=== PATIENT | female | born 1955 ===

== ENCOUNTER 2017-05-11 11:15 | Inpatient (IN) | payer SELFPAY ==
[2017-05-11] MEDS ORDERED: Sodium Chloride 0.9% 1,000 ML IV STA (12:54)
[2017-05-11 13:12] LABS: BASO # 0.1 K/uL (0.0-0.2); BASO % 0.8 % (0.0-2.0); EOS # 0.3 K/uL (0.0-0.7); EOS % 2.9 % (0.0-4.0); HEMATOCRIT 40.4 % (34.0-47.0); LYMPH % 32.6 % (20.0-40.0); MEAN CELL VOLUME 86.8 fL (81.0-99.0); MEAN CORPUSCULAR HEMOGLOBIN 28.7 pg (27.0-31.0); MEAN CORPUSCULAR HGB CONC 33.1 g/dL (33.0-37.0); MEAN PLATELET VOLUME 9.2 fL (7.2-11.7); MONO # 0.8 K/uL (0.0-0.8); MONO % 8.6 % (0.0-10.0); NRBC % 0.1 % (0.0-2.0); RED CELL DISTRIBUTION WIDTH 13.5 % (11.5-14.5); WHITE BLOOD COUNT 9.1 K/uL (4.8-10.8)
[2017-05-11 13:20] LABS: CHLORIDE 99 mmol/L (98-107); POTASSIUM 3.5 mmol/L (3.6-5.2); SODIUM 139 mmol/L (132-148)
[2017-05-11 13:22] LABS: AST/SGOT 35 U/L (14-36); BILIRUBIN,TOTAL 0.8 mg/dL (0.2-1.3); CARBON DIOXIDE 27 mmol/L (22-30); GFR AFRICAN-AMERICAN > 60
[2017-05-11 13:23] LABS: ALB/GLOB RATIO 1.1 (1.0-2.1); ALKALINE PHOSPHATASE 94 U/L (38-126); ALT/SGPT 37 U/L (9-52); BLOOD UREA NITROGEN 13 mg/dL (7-17); CALCIUM 9.5 mg/dl (8.6-10.4); GLUCOSE,RANDOM 103 mg/dL (65-105); TOTAL PROTEIN 8.2 g/dL (6.3-8.3)
[2017-05-11 14:51] LABS: RBC URINE 1 /hpf (0-3); URINE BACTERIA RARE (<OCC); URINE BILIRUBIN NEGATIVE (NEGATIVE); URINE BLOOD NEGATIVE (NEGATIVE); URINE COLOR Straw (YELLOW); URINE GLUCOSE (UA) NORMAL (Normal); URINE HYALINE CAST 0-2 /lpf (0-2); URINE KETONE NEGATIVE (NEGATIVE); URINE LEUKOCYTE ESTERASE 2+ Leu/uL (Negative); URINE PROTEIN NEGATIVE (NEGATIVE); URINE UROBILINOGEN NORMAL mg/dL (0.2-1.0); WBC URINE 14 /hpf (0-5)
--- NOTE | 2017-05-11 15:03 | CT ---
PROCEDURE: CT Abdomen and Pelvis with contrast HISTORY: RLQ pain COMPARISON: CT abdomen and pelvis with contrast performed 03/30/17 TECHNIQUE: Contrast dose: 100 mL Visipaque Radiation dose: Total exam DLP = 267.62 mGy-cm. This CT exam was performed using one or more of the following dose reduction techniques: Automated exposure control, adjustment of the mA and/or kV according to patient size, and/or use of iterative reconstruction technique. FINDINGS: LOWER THORAX: No visible consolidation, pleural effusion, or pneumothorax. LIVER: Punctate hepatic calcification, likely granuloma. Hypoattenuation of the liver compatible with hepatic steatosis. GALLBLADDER AND BILE DUCTS: Unremarkable. PANCREAS: Mild protuberance involving the pancreatic tail which is not evident on prior CT possibly due to distended stomach slightly obscuring this region. While this may reflect normal pancreatic tissue, underlying neoplasm cannot be entirely excluded and outpatient three-phase pancreatic protocol CT is recommended for further evaluation. SPLEEN: Unremarkable. ADRENALS: Unremarkable. KIDNEYS AND URETERS: The kidneys enhance symmetrically. No hydronephrosis or obstructing calculus identified. 2.3 cm left upper pole hypodensity appears cystic. Additional tiny left renal hypodensity too small to characterize ; statistically likely a cyst. VASCULATURE: No aortic aneurysm. BOWEL: Stomach is nondistended. Lack of oral contrast limits evaluation for bowel pathology. Bowel loops appear within normal limits of caliber without evidence of obstruction. APPENDIX: The appendix is not identified. No secondary signs of acute appendicitis. PERITONEUM: No significant free fluid. No definite free air. LYMPH NODES: No bulky adenopathy identified. BLADDER: Unremarkable. REPRODUCTIVE: The uterus is absent, presumably due to hysterectomy. BONES: Mild degenerative changes of the spine. Vacuum disc phenomenon at L5-S1. OTHER FINDINGS: Small fat containing umbilical hernia. Calcification is noted at the origin of the celiac artery. IMPRESSION: Mild protuberance involving the pancreatic tail which is not evident on prior CT possibly due to distended stomach slightly obscuring this region. While this may reflect normal pancreatic tissue, underlying neoplasm cannot be entirely excluded and outpatient three-phase pancreatic protocol CT is recommended for further evaluation. The appendix is not identified. No secondary signs of acute appendicitis. Hepatic steatosis. Left upper pole renal hypodense lesion appears cystic. Additional too small to characterize left renal hypodensity ; statistically likely a cyst. Additional findings as above.
--- NOTE | 2017-05-11 15:46 | C.PDOC ---
History Of Present Illness 62 y/o F c PMHx appendectomy p/w abdominal pain since last night and an episode of syncope and vomiting with dizziness this morning. Patient states she has been having epigastric abdominal pain x 1 month and had an outpatient CT. She developed a new RLQ pain last night that radiates to the R sided back. 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 She then had syncope lasting about 30 seconds. Denies fever, chills, dysuria, diarrhea, constipation. Time Seen by Provider: 05/11/17 12:00 Chief Complaint (Nursing): Dizziness/Lightheaded Past Medical History Vital Signs: Last Vital Signs Temp 98.4 F 05/11/17 11:18 Pulse 80 05/11/17 14:43 Resp 18 05/11/17 14:43 BP 161/91 H 05/11/17 14:43 Pulse Ox 100 05/11/17 14:43 - Medical History PMH: HTN, Hypercholesterolemia Surgical History: Appendectomy Family History: States: No Known Family Hx - Social History Hx Alcohol Use: No Hx Substance Use: No - Immunization History Hx Tetanus Toxoid Vaccination: No Hx Influenza Vaccination: Yes (2016) Hx Pneumococcal Vaccination: No Review Of Systems Except As Marked, All Systems Reviewed And Found Negative. Constitutional: Negative for: Fever Cardiovascular: Negative for: Chest Pain Physical Exam - Physical Exam Additional Physical Exam Comments: Constitutional: No acute distress. Head: Normocephalic. Atraumatic. Eyes: PERRL. EOMI ENT: Moist mucous membranes. Neck: Supple. Cardiovascular: Regular rate. Radial pulses 2+ bilaterally. Chest: No tenderness. Respiratory: Clear to auscultation bilaterally. GI: Soft. RLQ tenderness. Nondistended. Back: No CVA tenderness. No midline tenderness. Musculoskeletal: No tenderness or swelling of extremities. Skin: No rash. Neurologic: Alert, no focal deficit. ED Course And Treatment - Laboratory Results Result Diagrams: 05/11/17 13:04 05/11/17 13:04 O2 Sat by Pulse Oximetry: 100 ED OBSERVATION Date of observation admission: 05/11/17 Time of observation admission: 13:00 - Observation admission statement Patient is being placed in observation because:: abd pain - Goals of Observation Goals of observation are:: CT abdomen - Progress Note Progress Note: 1300 EKG NSR 67 bpm, no ST/T wave changes. 1500 CT: Accession No. : [id number] Patient Name / ID : RUSTY FAGAN / [id number] Exam Date : 05/11/2017 14:25:32 ( Approved ) Study Comment : Sex / Age : F / 62Y Creator : Ann-Marie Wisdom MD Dictator : Ann-Marie Wisdom MD Diplomatic Officer : Electro Mechanic : Ann-Marie Wisdom MD Approver2 : Report Date : 05/11/2017 15:01:58 My Comment : PROCEDURE: CT Abdomen and Pelvis with contrast HISTORY: RLQ pain COMPARISON: CT abdomen and pelvis with contrast performed 03/30/17 TECHNIQUE: Contrast dose: 100 mL Visipaque Radiation dose: Total exam DLP = 267.62 mGy-cm. This CT exam was performed using one or more of the following dose reduction techniques: Automated exposure control, adjustment of the mA and/or kV according to patient size, and/or use of iterative reconstruction technique. FINDINGS: LOWER THORAX: No visible consolidation, pleural effusion, or pneumothorax. LIVER: Punctate hepatic calcification, likely granuloma. Hypoattenuation of the liver compatible with hepatic steatosis. GALLBLADDER AND BILE DUCTS: Unremarkable. PANCREAS: Mild protuberance involving the pancreatic tail which is not evident on prior CT possibly due to distended stomach slightly obscuring this region. While this may reflect normal pancreatic tissue, underlying neoplasm cannot be entirely excluded and outpatient three-phase pancreatic protocol CT is recommended for further evaluation. SPLEEN: Unremarkable. ADRENALS: Unremarkable. KIDNEYS AND URETERS: The kidneys enhance symmetrically. No hydronephrosis or obstructing calculus identified. 2.3 cm left upper pole hypodensity appears cystic. Additional tiny left renal hypodensity too small to characterize ; statistically likely a cyst. VASCULATURE: No aortic aneurysm. BOWEL: Stomach is nondistended. Lack of oral contrast limits evaluation for bowel pathology. Bowel loops appear within normal limits of caliber without evidence of obstruction. APPENDIX: The appendix is not identified. No secondary signs of acute appendicitis. PERITONEUM: No significant free fluid. No definite free air. LYMPH NODES: No bulky adenopathy identified. BLADDER: Unremarkable. REPRODUCTIVE: The uterus is absent, presumably due to hysterectomy. BONES: Mild degenerative changes of the spine. Vacuum disc phenomenon at L5-S1. OTHER FINDINGS: Small fat containing umbilical hernia. Calcification is noted at the origin of the celiac artery. IMPRESSION: Mild protuberance involving the pancreatic tail which is not evident on prior CT possibly due to distended stomach slightly obscuring this region. While this may reflect normal pancreatic tissue, underlying neoplasm cannot be entirely excluded and outpatient three-phase pancreatic protocol CT is recommended for further evaluation. The appendix is not identified. No secondary signs of acute appendicitis. Hepatic steatosis. Left upper pole renal hypodense lesion appears cystic. Additional too small to characterize left renal hypodensity ; statistically likely a cyst. Additional findings as above. Dr. Bejarano came to bedside, accepts patient to his service for observation. Disposition - Disposition Disposition: HOSPITALIZED Disposition Time: 15:00 Condition: FAIR - Clinical Impression Clinical Impression: Syncope, Abdominal pain
--- NOTE | 2017-05-11 18:03 | CP.PCM.HP ---
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 Patient was immediately taken to the emergency room, and evaluation was done. Patient claims that she was having some trouble in the stomach for almost to 2 months, vague abdominal pain noted, associate with the some discomfort in the epigastric as well as in the right flank region. A month ago patient underwent a CAT scan of the abdomen. Patient was told that patient had acid reflux, and taking omeprazole for 2 weeks , without any improvement. Appetite is poor, she is also having episodes of cough. Cough usually happens after eating any type of food water, liquid, and solid food. She feels like some choking sensation and after that she started having some cough, and following that sometimes he brings up the food material. She does not have any chest pain. Complaining of some epigastric discomfort on and off noted. Night symptoms negative. Because of her symptoms, she feeling extremely weak and tired recently. While she was working today she was trying to move and stand up she felt dizzy, and fell on the floor. She did not have any injury. Bystander immediately called and brought into the emergency room. Past medical history: Hypertension, high cholesterol Allergy: No known drug allergy Personal history nonsmoker nonalcoholic. Surgical history none Family history noncontributory Review of system noted from the chart. Currently having mild headache, dizziness noted, some visual discomfort also noted, including visual symptoms. Denies any chest pain. On and off cough noted with the eating. Epigastric discomfort noted. Abdominal leg pain noted. Currently having increasing pain in the right flank and the right lower abdominal area. No leg swelling Denies any chest pain. 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 CAT scan of the abdomen did not reveal any acute pathology. Patient had one CAT scan done a month ago reviewed EKG nonspecific Assessment and recommendation: 62-year-old female with history of hypertension and hypercholesteremia now admitted to the hospital with the following a syncopal attack. Patient also has a significant poor intake recently. Some weight loss noted. Patient is having epigastric discomfort, cough and the dysphagia-like symptoms. Patient may need upper endoscopy to evaluation for esophageal disease. We'll get a GI evaluation. CT of the chest advised to rule out any mediastinal disease. IV fluid. Continue the current treatment and will follow the patient. Carotid Doppler, CT of the head advised. Telemetry monitoring. Spoke to the patient's in details Present on Admission - Present on Admission Any Indicators Present on Admission: No History of DVT/PE: No History of Uncontrolled Diabetes: No Urinary Catheter: No Decubitus Ulcer Present: No Past Patient History - Past Social History Smoking Status: Never Smoked - CARDIAC Hx Hypercholesterolemia: Yes Hx Hypertension: Yes - PSYCHIATRIC Hx Substance Use: No - SURGICAL HISTORY Hx Appendectomy: Yes - ANESTHESIA Hx Anesthesia: Yes Hx Anesthesia Reactions: No Meds Allergies/Adverse Reactions: Allergies Allergy/AdvReac Type Severity Reaction Status Date / Time No Known Allergies Allergy Verified 05/11/17 11:22 Results - Vital Signs Recent Vital Signs: Last Vital Signs Temp 97.9 F 05/11/17 17:09 Pulse 77 05/11/17 17:09 Resp 20 05/11/17 17:09 BP 137/78 05/11/17 17:09 Pulse Ox 98 05/11/17 17:09 - Labs Result Diagrams: 05/11/17 13:04 05/11/17 13:04
[2017-05-11] MEDS: Sodium Chloride 0.45% 1,000 ML IV SCH (18:33)
[2017-05-11] MEDS: Venlafaxine 75 mg ER Cap PO SCH (22:22)
--- NOTE | 2017-05-12 08:17 | CP.PCM.CON ---
<Dwight Alba - Last Filed: 05/12/17 08:17> History of Present Illness - History of Present Illness History of Present Illness: PGY4 GI Fellow Consult Note Patient is a 62yo female with PMHx significant for HTN and hyperlipidemia who presented to the ED following syncopal episode. 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 She was brought to the ED immediately for further evaluation. Patient admits to nonradiating, cramping epigastric abdominal pain for the past two months. Symptoms are typically postprandial though have sporadically occurred as well. Nothing seems to make her symptoms better, including Omeprazole which she has used for the past 2 weeks after a visit with her family practitioner. She denies any weight loss, hematochezia or NSAID use. Admits to decreased appetite, nausea and almost daily vomiting. Did have episode of dark stool two days [employer] as well. No prior EGD. She did have a CT on which revealed what appeared to be celiac artery narrowing. Repeat CT performed yesterday was rather unremarkable. PMHx: See HPI PSHx: Appendectomy, Total abdominal hysterectomy FHx: Father - CAD, Lung cancer (smoker) Social: Denies tobacco, EtOH or illicit drug use Endo: Colonoscopy 10-15 yrs ago; unremarkable per patient Review of Systems - Constitutional Constitutional: Anorexia. absent: Chills, Fever - EENT Eyes: absent: Change in Vision Nose/Mouth/Throat: absent: Sore Throat - Cardiovascular Cardiovascular: Syncope. absent: Chest Pain, Dyspnea, Edema, Palpitations - Respiratory Respiratory: Cough. absent: Dyspnea, Excessive Mucous Production - Gastrointestinal Gastrointestinal: Abdominal Pain, Cramping, Early Satiety, Melena, Nausea, Vomiting. absent: Belching, Bloating, Constipation, Diarrhea, Dysphagia, Heartburn, Hematemesis, Hematochezia - Genitourinary Genitourinary: absent: Dysuria, Urinary Frequency, Urinary Urgency - Musculoskeletal Musculoskeletal: absent: Back Pain, Neck Pain - Integumentary Integumentary: absent: New Lesions, Rash - Neurological Neurological: Dizziness. absent: Numbness, Focal Weakness - Psychiatric Psychiatric: absent: Anxiety, Depression - Endocrine Endocrine: absent: Polydipsia, Polyphagia, Polyuria - Hematologic/Lymphatic Hematologic: absent: Easy Bleeding, Easy Bruising, Lymphadenopathy Past Patient History - Past Medical History & Family History Past Medical History?: Yes - Past Social History Smoking Status: Never Smoked - CARDIAC Hx Hypercholesterolemia: Yes Hx Hypertension: Yes - PULMONARY Hx Respiratory Disorders: No - NEUROLOGICAL Hx Neurological Disorder: No - HEENT Hx HEENT Problems: No - RENAL Hx Chronic Kidney Disease: No - ENDOCRINE/METABOLIC Hx Endocrine Disorders: No - HEMATOLOGICAL/ONCOLOGICAL Hx Blood Disorders: No - INTEGUMENTARY Hx Dermatological Problems: No - MUSCULOSKELETAL/RHEUMATOLOGICAL Hx Musculoskeletal Disorders: No Hx Falls: No - GASTROINTESTINAL Hx Gastrointestinal Disorders: No - GENITOURINARY/GYNECOLOGICAL Hx Genitourinary Disorders: No - PSYCHIATRIC Hx Substance Use: No - SURGICAL HISTORY Hx Appendectomy: Yes - ANESTHESIA Hx Anesthesia: Yes Hx Anesthesia Reactions: No Meds Allergies/Adverse Reactions: Allergies Allergy/AdvReac Type Severity Reaction Status Date / Time No Known Allergies Allergy Verified 05/11/17 11:22 - Medications Medications: Current Medications Sodium Chloride (Sodium Chloride 0.45%) 1,000 mls @ 50 mls/hr IV .Q20H [facility] Last Admin: 05/11/17 18:33 Dose: 50 mls/hr Losartan Potassium (Cozaar) 50 mg PO DAILY [facility] Last Admin: 05/11/17 18:33 Dose: 50 mg Ondansetron HCl (Zofran Inj) 4 mg IVP Q6 PRN PRN Reason: Nausea/Vomiting Last Admin: 05/11/17 21:02 Dose: 4 mg Pantoprazole Sodium (Protonix Ec Tab) 40 mg PO DAILY [facility] Venlafaxine HCl (Effexor Xr) 75 mg PO HS [facility] Last Admin: 05/11/17 22:22 Dose: 75 mg Physical Exam - Constitutional Appears: Non-toxic, No Acute Distress - Eye Exam Eye Exam: EOMI, PERRL - ENT Exam ENT Exam: Mucous Membranes Moist - Respiratory Exam Respiratory Exam: Clear to Auscultation Bilateral. absent: Rales, Rhonchi, Wheezes - Cardiovascular Exam Cardiovascular Exam: RRR, +S1, +S2 - GI/Abdominal Exam GI & Abdominal Exam: Normal Bowel Sounds, Soft, Tenderness (epigastric, RLQ). absent: Distended, Firm, Guarding, Rigid - Extremities Exam Extremities exam: Positive for: normal inspection. Negative for: pedal edema - Neurological Exam Neurological exam: Alert, Oriented x3 - Psychiatric Exam Psychiatric exam: Normal Affect, Normal Mood - Skin Skin Exam: Dry, Warm Results - Vital Signs Recent Vital Signs: Last Vital Signs Temp 98.6 F 05/11/17 23:15 Pulse 91 H 05/11/17 23:15 Resp 20 05/11/17 23:15 BP 116/73 05/11/17 23:15 Pulse Ox 98 05/11/17 23:15 - Labs Result Diagrams: 05/11/17 13:04 05/11/17 13:04 Assessment & Plan - Assessment and Plan (Free Text) Assessment: Patient is a 62yo female with PMHx significant for HTN and hyperlipidemia who presented to the ED following syncopal episode. She also complains of epigastric and RLQ abdominal pain for 2 months. -Syncope and collapse -Epigastric/RLQ abdominal pain -Abnormal CT imaging of the celiac artery -Hypokalemia Plan: -Syncope work up in process by primary team -Given findings on CT from 03/30; check CTA A/P - concern for celiac artery stenosis/abdominal angina/MALS -May benefit from Vascular surgery/IR consultation to discuss options moving forward; will await CTA -Protonix 40mg PO QAMAC -Recommend EGD tomorrow -Diet as tolerated today; NPO past MN - Date & Time Date: 05/12/17 Time: 07:00 <Roc Radford - Last Filed: 05/12/17 11:30> Meds - Medications Medications: Current Medications Heparin Sodium (Porcine) (Heparin) 5,000 units SC Q12 [facility] Sodium Chloride (Sodium Chloride 0.45%) 1,000 mls @ 50 mls/hr IV .Q20H [facility] Last Admin: 05/11/17 18:33 Dose: 50 mls/hr Losartan Potassium (Cozaar) 50 mg PO DAILY [facility] Last Admin: 05/12/17 09:23 Dose: 50 mg Ondansetron HCl (Zofran Inj) 4 mg IVP Q6 PRN PRN Reason: Nausea/Vomiting Last Admin: 05/12/17 09:22 Dose: 4 mg Pantoprazole Sodium (Protonix Ec Tab) 40 mg PO DAILY [facility] Last Admin: 05/12/17 09:23 Dose: 40 mg Venlafaxine HCl (Effexor Xr) 75 mg PO HS [facility] Last Admin: 05/11/17 22:22 Dose: 75 mg Results - Vital Signs Recent Vital Signs: Last Vital Signs Temp 99.0 F 05/12/17 08:44 Pulse 79 05/12/17 08:44 Resp 20 05/12/17 08:44 BP 106/68 05/12/17 08:44 Pulse Ox 96 05/12/17 08:44 - Labs Result Diagrams: 05/11/17 13:04 05/11/17 13:04 Attending/Attestation - Attestation I have personally seen and examined this patient.: Yes I have fully participated in the care of the patient.: Yes I have reviewed all pertinent clinical information: Yes Notes (Text): 05/12/17 11:27 62 year old female with h/o HTN, HLD who is admitted with post prandial abdominal pain x 2 months, with findings on recent CT scan suggestive of median arcuate ligament syndrome. 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 PUD) -recommend vascular surgery and IR evaluation to assess therapeutic options for MALS/CACS -recommend protonix 40 mg daily -diet as tolerated for now, NPO for procedure tomorrow
[2017-05-12] MEDS: Pantoprazole 40 mg EC Tab PO SCH (09:23)
--- NOTE | 2017-05-12 12:47 | CARD ---
APPROVED REPORT EKG Measurement Heart [id number] <Conclusion> Normal sinus rhythm Low voltage QRS Possible Inferior infarct, age undetermined Abnormal ECG
[2017-05-12] MEDS: Sodium Chloride 0.45% 1,000 ML IV SCH (14:52)
--- NOTE | 2017-05-12 15:48 | CP.PCM.CON ---
History of Present Illness - History of Present Illness History of Present Illness: SURGERY CONSULT NOTE FOR DR. WILD 62F presents with abdominal pain that started two months ago. She states the past three days the pain as gotten much worse. The pain radiated from epigastric region to RLQ mostly, but it is everywhere. It is associated with eating it, the pain intensity fluctuates but does not go away. Patient was seen in CT after drinking contrast and she states she felt nauseous. She has been vomiting anything she eats the past two days. There is no blood in the emesis. States she is having flatus and normal bowel movements. States the pain is also worse when she lays on her back and has to sleep on her side. PMH: HTN, HLD PSH: Appendectomy, Hysterectomy Social: denies tobacco, alcohol, illicit drug Allergies: NKDA Past Patient History - Past Medical History & Family History Past Medical History?: Yes - Past Social History Smoking Status: Never Smoked - CARDIAC Hx Hypercholesterolemia: Yes Hx Hypertension: Yes - PULMONARY Hx Respiratory Disorders: No - NEUROLOGICAL Hx Neurological Disorder: No - HEENT Hx HEENT Problems: No - RENAL Hx Chronic Kidney Disease: No - ENDOCRINE/METABOLIC Hx Endocrine Disorders: No - HEMATOLOGICAL/ONCOLOGICAL Hx Blood Disorders: No - INTEGUMENTARY Hx Dermatological Problems: No - MUSCULOSKELETAL/RHEUMATOLOGICAL Hx Musculoskeletal Disorders: No Hx Falls: No - GASTROINTESTINAL Hx Gastrointestinal Disorders: No - GENITOURINARY/GYNECOLOGICAL Hx Genitourinary Disorders: No - PSYCHIATRIC Hx Substance Use: No - SURGICAL HISTORY Hx Appendectomy: Yes - ANESTHESIA Hx Anesthesia: Yes Hx Anesthesia Reactions: No Meds Allergies/Adverse Reactions: Allergies Allergy/AdvReac Type Severity Reaction Status Date / Time No Known Allergies Allergy Verified 05/11/17 11:22 - Medications Medications: Current Medications Heparin Sodium (Porcine) (Heparin) 5,000 units SC Q12 [facility] Last Admin: 05/12/17 11:47 Dose: 5,000 units Sodium Chloride (Sodium Chloride 0.45%) 1,000 mls @ 50 mls/hr IV .Q20H [facility] Last Admin: 05/12/17 14:52 Dose: 50 mls/hr Losartan Potassium (Cozaar) 50 mg PO DAILY [facility] Last Admin: 05/12/17 09:23 Dose: 50 mg Ondansetron HCl (Zofran Inj) 4 mg IVP Q6 PRN PRN Reason: Nausea/Vomiting Last Admin: 05/12/17 09:22 Dose: 4 mg Pantoprazole Sodium (Protonix Ec Tab) 40 mg PO DAILY [facility] Last Admin: 05/12/17 09:23 Dose: 40 mg Venlafaxine HCl (Effexor Xr) 75 mg PO HS [facility] Last Admin: 05/11/17 22:22 Dose: 75 mg Physical Exam - Constitutional Appears: Non-toxic, No Acute Distress, Other (Uncomfortable) - Eye Exam Eye Exam: EOMI, PERRL - ENT Exam ENT Exam: Mucous Membranes Moist - Respiratory Exam Respiratory Exam: Clear to Auscultation Bilateral, NORMAL BREATHING PATTERN - Cardiovascular Exam Cardiovascular Exam: REGULAR RHYTHM, +S1, +S2 - GI/Abdominal Exam GI & Abdominal Exam: Soft, Tenderness (diffuse tenderness on palpation). absent : Distended, Firm, Guarding, Rebound, Rigid - Extremities Exam Extremities exam: Positive for: pedal edema, tenderness - Neurological Exam Neurological exam: Alert, Oriented x3 - Psychiatric Exam Psychiatric exam: Normal Affect, Normal Mood - Skin Skin Exam: Dry, Intact, Normal Color, Warm Results - Vital Signs Recent Vital Signs: Last Vital Signs Temp 98.8 F 05/12/17 15:44 Pulse 80 05/12/17 15:44 Resp 18 05/12/17 15:44 BP 112/68 05/12/17 15:44 Pulse Ox 95 05/12/17 15:44 - Labs Result Diagrams: 05/11/17 13:04 05/11/17 13:04 Assessment & Plan - Assessment and Plan (Free Text) Assessment: 62F with abdominal pain 2/2 unknown etiology, r/o Celiac artery compression syndrome Plan: - NPO, pain control, anti-emetic - f/u CT angio of abdomen - f/u Celiac/SMA doppler - EGD tomorrow with GI Discussed with Dr. Gael Page, PGY1
[2017-05-12] MEDS ORDERED: Iohexol 350mg/ml 100 ML ONE (16:10)
[2017-05-12] MEDS ORDERED: Barium Sulfate Susp 0.1% w/v, 0.1% w/w 450 mL Bottle PO ONE (16:22)
--- NOTE | 2017-05-12 17:40 | CT ---
PROCEDURE: CT HEAD WITHOUT CONTRAST. HISTORY: syncope COMPARISON: None available. TECHNIQUE: Axial computed tomography images were obtained through the head/brain without intravenous contrast. Radiation dose: Total exam DLP = 1043.00 mGy-cm. This CT exam was performed using one or more of the following dose reduction techniques: Automated exposure control, adjustment of the mA and/or kV according to patient size, and/or use of iterative reconstruction technique. FINDINGS: HEMORRHAGE: No intracranial hemorrhage. BRAIN: No mass effect or edema. No atrophy or chronic microvascular ischemic changes. VENTRICLES: Unremarkable. No hydrocephalus. CALVARIUM: Unremarkable. PARANASAL SINUSES: Minimal chronic sphenoid sinusitis. MASTOID AIR CELLS: Unremarkable as visualized. No inflammatory changes. OTHER FINDINGS: None. IMPRESSION: No intracranial mass, hemorrhage or evidence of acute infarct. Minimal chronic sphenoid sinusitis.
--- NOTE | 2017-05-12 18:30 | CT ---
CTA abdomen and pelvis Indication: Post prandial abdominal pain Comparison: CT abdomen and pelvis with IV contrast performed 05/11/17. Technique: Contrast dose: 100 Omnipaque 350 Total exam DLP: 426.18 Axial computed tomographic angiogram images of the abdomen and pelvis were performed after bolus administration of intravenous contrast. Sagittal and coronal reformatted images generated and reviewed. This CT exam was performed using 1 or more of the falling dose reduction techniques: Automated exposure control, adjustment of the MAA and/or kV according to patient size, and/or use of iterative reconstruction technique. Findings: Limited views of the inferior thorax appear unremarkable without visible pleural effusion or pneumothorax. There is normal course and contour of the abdominal aorta and common iliac arteries. Proximal celiac artery narrowing with post stenotic dilatation. Small calcification near the origin of the celiac artery. The superior mesenteric artery origin is widely patent. The inferior mesenteric artery origin is patent. Single renal arteries identified bilaterally, both widely patent. 2.3 cm left upper pole hypodensity appears cystic. Additional tiny left renal hypodensity too small to characterize ; statistically likely a cyst. Hypoattenuation of the liver compatible with hepatic steatosis. Imaged portions of the liver, pancreas, spleen, adrenal glands, and gallbladder appear otherwise grossly unremarkable. Pancreatic tail appears grossly unremarkable on this study. The kidneys enhance symmetrically without evidence of hydronephrosis or obstructing renal calculi. Inadequate distention of bowel loops with VoLumen. Visualized bowel loops appear within normal limits of caliber without evidence of obstruction. The appendix is not identified. No inflammatory changes are seen in the right lower quadrant to suggest acute appendicitis. No definite free air. Small fat containing umbilical hernia. The urinary bladder appears unremarkable. The uterus is absent consistent with hysterectomy. No significant pelvic free fluid is identified. 6 mm fat containing umbilical hernia. Degenerative changes. 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 Correlate clinically for median arcuate ligament syndrome. Additional findings as above.
--- NOTE | 2017-05-12 18:57 | CT ---
PROCEDURE: CT Chest without contrast HISTORY: mediastinal disease COMPARISON: None. TECHNIQUE: Contiguous axial images were obtained through the chest without intravenous contrast enhancement. Sagittal and coronal reconstructions were performed. Radiation dose (DLP): 223.00 mGy-cm. This CT exam was performed using one or more of the following dose reduction techniques: Automated exposure control, adjustment of the mA and/or kV according to patient size, and/or use of iterative reconstruction technique. FINDINGS: LUNGS: No pulmonary infiltrate. Linear scar/ atelectasis in right middle lobe. Subpleural 6 mm nodule in lingular segment left upper lobe. Followup noncontrast chest CT examination is advised in 6-12 months, as per Fleischner society criteria. MEDIASTINUM: Unremarkable thoracic aorta. No aneurysm. Normal sized heart. Main pulmonary artery unremarkable. No vascular congestion. No lymphadenopathy. PLEURA: No pleural fluid. No pneumothorax. BONES: No fracture. No destructive lesion. UPPER ABDOMEN: Punctate calcification anterior right hepatic lobe. Likely granulomatous. OTHER FINDINGS: None. IMPRESSION: 6 mm subpleural lingual nodule. Followup with noncontrast chest CT in 6-12 months is advised. No acute abnormality.
[2017-05-12] MEDS: Venlafaxine 75 mg ER Cap PO SCH (22:18)
--- NOTE | 2017-05-13 08:11 | CP.PCM.PN ---
Subjective - Date & Time of Evaluation Date of Evaluation: 05/13/17 Time of Evaluation: 08:08 - Subjective Subjective: SURGERY NOTE FOR DR. WILD 62F seen and examined at bedside. Patient states pain is better, denies nausea/ vomiting. Denies change in bowel movement. Objective - Vital Signs/Intake and Output Vital Signs (last 24 hours): Temp Pulse Resp BP Pulse Ox 98.4 F 80 20 116/66 96 05/12/17 23:00 05/12/17 23:00 05/12/17 23:00 05/12/17 23:00 05/12/17 23:00 - Medications Medications: Current Medications Heparin Sodium (Porcine) (Heparin) 5,000 units SC Q12 [facility] Last Admin: 05/12/17 22:18 Dose: 5,000 units Sodium Chloride (Sodium Chloride 0.45%) 1,000 mls @ 50 mls/hr IV .Q20H [facility] Last Admin: 05/12/17 14:52 Dose: 50 mls/hr Losartan Potassium (Cozaar) 50 mg PO DAILY [facility] Last Admin: 05/12/17 09:23 Dose: 50 mg Ondansetron HCl (Zofran Inj) 4 mg IVP Q6 PRN PRN Reason: Nausea/Vomiting Last Admin: 05/12/17 09:22 Dose: 4 mg Pantoprazole Sodium (Protonix Ec Tab) 40 mg PO DAILY [facility] Last Admin: 05/12/17 09:23 Dose: 40 mg Venlafaxine HCl (Effexor Xr) 75 mg PO HS [facility] Last Admin: 05/12/17 22:18 Dose: 75 mg - Constitutional Appears: Non-toxic, No Acute Distress - ENT Exam ENT Exam: Mucous Membranes Moist - Respiratory Exam Respiratory Exam: Clear to Ausculation Bilateral, NORMAL BREATHING PATTERN - Cardiovascular Exam Cardiovascular Exam: REGULAR RHYTHM, +S1, +S2 - GI/Abdominal Exam GI & Abdominal Exam: Soft, Tenderness (mild tender to palpation). absent: Distended, Firm, Guarding, Rigid, Rebound Assessment and Plan - Assessment and Plan (Free Text) Assessment: 62F presents with abdominal pain. r/o Celiac artery compression syndrome CTA: severe narrowing of celiac artery with post stenotic dilatation Plan: - Patient going for EGD today with GI - Pending Celiac/SMA doppler - NPO, pain control Further recs discuss with Dr. Gael Page, PGY1
[2017-05-13] MEDS: Pantoprazole 40 mg EC Tab PO SCH (10:27)
[2017-05-13] MEDS: Sodium Chloride 0.45% 1,000 ML IV SCH (10:27)
[2017-05-13] MEDS ORDERED: Propofol 10 mg/ml Inj (20 ML) ONE (13:11)
[2017-05-13 16:33] VITALS: RESP 20
[2017-05-13] MEDS: Venlafaxine 75 mg ER Cap PO SCH (21:22)
[2017-05-14 00:57] VITALS: BP 127/79; PULSE 77; TEMP 98.7; O2SAT 97
--- NOTE | 2017-05-14 01:25 | CP.PCM.PN ---
Objective - Vital Signs/Intake and Output Vital Signs (last 24 hours): Temp Pulse Resp BP Pulse Ox 98.7 F 77 20 127/79 97 05/13/17 23:00 05/13/17 23:00 05/13/17 23:00 05/13/17 23:00 05/13/17 23:00 Intake and Output: 05/13/17 05/14/17 18:59 06:59 Intake Total 400 Balance 400 - Medications Medications: Current Medications Heparin Sodium (Porcine) (Heparin) 5,000 units SC Q12 [facility] Last Admin: 05/13/17 21:22 Dose: 5,000 units Sodium Chloride (Sodium Chloride 0.45%) 1,000 mls @ 50 mls/hr IV .Q20H [facility] Last Admin: 05/13/17 10:27 Dose: Not Given Losartan Potassium (Cozaar) 50 mg PO DAILY [facility] Last Admin: 05/13/17 11:08 Dose: 50 mg Ondansetron HCl (Zofran Inj) 4 mg IVP Q6 PRN PRN Reason: Nausea/Vomiting Last Admin: 05/12/17 09:22 Dose: 4 mg Pantoprazole Sodium (Protonix Ec Tab) 40 mg PO DAILY [facility] Last Admin: 05/13/17 10:27 Dose: Not Given Venlafaxine HCl (Effexor Xr) 75 mg PO HS [facility] Last Admin: 05/13/17 21:22 Dose: 75 mg
--- NOTE | 2017-05-14 01:25 | CP.PCM.PN ---
Subjective - Date & Time of Evaluation Date of Evaluation: 05/13/17 Time of Evaluation: 09:00 Objective - Vital Signs/Intake and Output Vital Signs (last 24 hours): Temp Pulse Resp BP Pulse Ox 98.7 F 77 20 127/79 97 05/13/17 23:00 05/13/17 23:00 05/13/17 23:00 05/13/17 23:00 05/13/17 23:00 Intake and Output: 05/13/17 05/14/17 18:59 06:59 Intake Total 400 Balance 400 - Medications Medications: Current Medications Heparin Sodium (Porcine) (Heparin) 5,000 units SC Q12 [facility] Last Admin: 05/13/17 21:22 Dose: 5,000 units Sodium Chloride (Sodium Chloride 0.45%) 1,000 mls @ 50 mls/hr IV .Q20H [facility] Last Admin: 05/13/17 10:27 Dose: Not Given Losartan Potassium (Cozaar) 50 mg PO DAILY [facility] Last Admin: 05/13/17 11:08 Dose: 50 mg Ondansetron HCl (Zofran Inj) 4 mg IVP Q6 PRN PRN Reason: Nausea/Vomiting Last Admin: 05/12/17 09:22 Dose: 4 mg Pantoprazole Sodium (Protonix Ec Tab) 40 mg PO DAILY [facility] [place] Last Admin: 05/13/17 10:27 Dose: Not Given Venlafaxine HCl (Effexor Xr) 75 mg PO HS [facility] Last Admin: 05/13/17 21:22 Dose: 75 mg
[2017-05-14] MEDS: Sodium Chloride 0.45% 1,000 ML IV SCH (06:57)
--- NOTE | 2017-05-14 08:43 | CP.PCM.PN ---
<Dwight Alba - Last Filed: 05/14/17 11:59> Subjective - Date & Time of Evaluation Date of Evaluation: 05/14/17 Time of Evaluation: 07:10 - Subjective Subjective: PGY4 GI Fellow Progress Note Patient seen and examined bedside this morning. The patient ate yesterday but again developed epigastric pain and nausea afterwards. No episodes of vomiting. 12 system ROS performed and negative except where stated. Objective - Vital Signs/Intake and Output Vital Signs (last 24 hours): Temp Pulse Resp BP Pulse Ox 98.7 F 77 20 127/79 97 05/13/17 23:00 05/13/17 23:00 05/13/17 23:00 05/13/17 23:00 05/13/17 23:00 Intake and Output: 05/14/17 05/14/17 06:59 18:59 Intake Total 800 Balance 800 - Medications Medications: Current Medications Heparin Sodium (Porcine) (Heparin) 5,000 units SC Q12 [facility] Last Admin: 05/13/17 21:22 Dose: 5,000 units Sodium Chloride (Sodium Chloride 0.45%) 1,000 mls @ 50 mls/hr IV .Q20H [facility] Last Admin: 05/14/17 06:57 Dose: Not Given Losartan Potassium (Cozaar) 50 mg PO DAILY [facility] Last Admin: 05/13/17 11:08 Dose: 50 mg Ondansetron HCl (Zofran Inj) 4 mg IVP Q6 PRN PRN Reason: Nausea/Vomiting Last Admin: 05/12/17 09:22 Dose: 4 mg Pantoprazole Sodium (Protonix Ec Tab) 40 mg PO DAILY [facility] Last Admin: 05/13/17 10:27 Dose: Not Given Venlafaxine HCl (Effexor Xr) 75 mg PO HS [facility] Last Admin: 05/13/17 21:22 Dose: 75 mg - Constitutional Appears: Non-toxic, No Acute Distress - Eye Exam Eye Exam: EOMI, PERRL - ENT Exam ENT Exam: Mucous Membranes Moist - Respiratory Exam Respiratory Exam: Clear to Ausculation Bilateral. absent: Rales, Rhonchi, Wheezes - Cardiovascular Exam Cardiovascular Exam: RRR, +S1, +S2 - GI/Abdominal Exam GI & Abdominal Exam: Soft, Normal Bowel Sounds. absent: Distended, Firm, Guarding, Rigid, Tenderness, Organomegaly - Extremities Exam Extremities Exam: Normal Inspection. absent: Pedal Edema - Neurological Exam Neurological Exam: Alert, Awake, Oriented x3 - Psychiatric Exam Psychiatric exam: Normal Affect, Normal Mood - Skin Skin Exam: Dry, Warm Assessment and Plan - Assessment and Plan (Free Text) Assessment: Patient is a 62yo female with PMHx significant for HTN and hyperlipidemia who presented to the ED following syncopal episode. She also complains of epigastric and RLQ abdominal pain for 2 months. -Syncope and collapse -Celiac artery stenosis - c/w MALS -Postprandial epigastric abdominal pain likely 2/2 above Plan: -Endoscopy unremarkable for any overt lesions/findings -Await pathology from gastric biopsies -CTA noted; recommend evaluation at [place] for suspected MALS -Appreciate vascular surgery input -Can discontinue protonix 40mg PO QAMAC -Diet as tolerated -OK for D/C from GI standpoint <Regis Suarez - Last Filed: 05/14/17 15:13> Objective - Vital Signs/Intake and Output Vital Signs (last 24 hours): Temp Pulse Resp BP Pulse Ox 98.7 F 77 20 127/79 97 05/13/17 23:00 05/13/17 23:00 05/13/17 23:00 05/13/17 23:00 05/13/17 23:00 Intake and Output: 05/14/17 05/14/17 06:59 18:59 Intake Total 800 240 Balance 800 240 - Medications Medications: Current Medications Heparin Sodium (Porcine) (Heparin) 5,000 units SC Q12 [facility] Last Admin: 05/14/17 09:17 Dose: 5,000 units Sodium Chloride (Sodium Chloride 0.45%) 1,000 mls @ 50 mls/hr IV .Q20H [facility] Last Admin: 05/14/17 06:57 Dose: Not Given Losartan Potassium (Cozaar) 50 mg PO DAILY [facility] Last Admin: 05/14/17 09:16 Dose: 50 mg Ondansetron HCl (Zofran Inj) 4 mg IVP Q6 PRN PRN Reason: Nausea/Vomiting Last Admin: 05/12/17 09:22 Dose: 4 mg Venlafaxine HCl (Effexor Xr) 75 mg PO HS [facility] Last Admin: 05/13/17 21:22 Dose: 75 mg Attending/Attestation - Attestation I have personally seen and examined this patient.: Yes I have fully participated in the care of the patient.: Yes I have reviewed all pertinent clinical information, including history, physical exam and plan: Yes Notes (Text): 05/14/17 15:10 I have seen and examined patient with GI fellow. No acute events overnight, she is seen resting in bed appears comfortable. She still endorses post prandial abdominal pain, last episode yesterday. s/p EGD yesterday without significant findings. She denies nausea, vomiting, fever/chills. HTN Hyperlipidemia Abdominal pain, s/p EGD with finding of mild gastritis Clinical and radiographic features suggestive of median arcuate ligament syndrome - Diet as tolerated - Awaiting biopsy results from EGD - Follow up vascular surgery recommendations, initial impression is that no further intervention is planned. Patient will seek second opinion from surgeon at outside facility to assess need for potential intervention. - From GI standpoint, ok to discharge patient with subsequent outpatient follow up. Case discussed with Dr. Bejarano
--- NOTE | 2017-05-14 10:27 | VASCLAB ---
PROCEDURE: HISTORY: Syncope COMPARISON: None available. TECHNIQUE: Grayscale and duplex Doppler evaluation of the cervical carotid and vertebral arteries were performed. The common carotid, carotid bifurcations and cervical Internal Carotid Artery (ICA) and proximal External Carotid Artery (ECA) were evaluated. The vertebral arteries were evaluated for gross patency and flow direction. Report prepared by VALERIE Stone FINDINGS: RIGHT CAROTID ARTERIES: 1. Common Carotid Artery: No significant focal plaque formation of the right common carotid artery. Maximum Peak Systolic velocity: 91 cm/sec: End-diastolic velocity 26 cm/sec. 2. Carotid Bifurcation: plaque formation. Maximum Peak Systolic velocity: 51 cm/sec: End-diastolic velocity 18 cm/sec. 3. Internal Carotid Artery: Plaque description: 3.1. Proximal Segment: Peak systolic velocity 78 cm/sec: End-diastolic velocity 35 cm/sec - % stenosis 0-15% 3.2. Middle Segment: Peak systolic velocity 92 cm/sec: End-diastolic velocity 40 cm/sec - % stenosis 0-15% 3.3. Distal Segment: Peak systolic velocity 105 cm/sec: End-diastolic velocity 37 cm/sec - % stenosis 0-15% 4. External Carotid Artery: No significant focal plaque formation. Peak systolic velocity 80 cm/sec 5. ICA/CCA Ratio: 1.8 LEFT CAROTID ARTERIES: 1. Common Carotid Artery: No significant focal plaque formation of the left common carotid artery. Maximum Peak Systolic velocity: 72 cm/sec: End-diastolic velocity 19 cm/sec. 2. Carotid Bifurcation: plaque formation. Maximum Peak Systolic velocity: 45 cm/sec: End-diastolic velocity 15 cm/sec. 3. Internal Carotid Artery: Plaque description: 3.1. Proximal Segment: Peak systolic velocity 81 cm/sec: End-diastolic velocity 43 cm/sec - % stenosis 0-15% 3.2. Middle Segment: Peak systolic velocity 126 cm/sec: End-diastolic velocity 60 cm/sec - % stenosis 0-15% 3.3. Distal Segment: Peak systolic velocity 127 cm/sec: End-diastolic velocity 53 cm/sec - % stenosis 0-15% 4. External Carotid Artery: No significant focal plaque formation. Peak systolic velocity 66 cm/sec 5. ICA/CCA Ratio: 1.9 VERTEBRAL ARTERIES: 1. Right Vertebral Artery: The right vertebral artery flow direction is antegrade. 2. Left Vertebral Artery: The left vertebral artery flow direction is antegrade. OTHER FINDINGS: 1. Right Brachial Blood pressure: 115 mmHg. 2. Left Brachial Blood pressure: 120 mmHg. IMPRESSION: RIGHT: Duplex scan does not suggest hemodynamically significant stenosis of the right extracranial carotid arteries. LEFT: Duplex scan does not suggest hemodynamically significant stenosis of the left extracranial carotid arteries.
--- NOTE | 2017-05-14 10:27 | VASCLAB ---
PROCEDURE: HISTORY: Celiac artery compression COMPARISON: None available. TECHNIQUE: Grayscale and duplex Doppler evaluation of the mesenteric arteries. Report prepared by QUAN Perea, RVT FINDINGS: * Suprarenal: Peak Systolic Velocity - 58 Doppler Waveform: Triphasic.: EDV- * Celiac: o Proximal Celiac : Peak Systolic Velocity - 442 Doppler Waveform: Stenosis EDV- 117 o Distal Celiac: Peak Systolic Velocity - 437: Doppler Waveform: Stenosis EDV- 154 * Proximal Hepatic: Peak Systolic Velocity - 100: Doppler Waveform: Triphasic.: EDV- 33 * Proximal Splenic: Peak Systolic Velocity - 204: Doppler Waveform: Triphasic.: EDV- 25 * Mesenteric o Proximal Superior Mesenteric: Peak Systolic Velocity - 326: Doppler Waveform: Stenotic.: EDV- 29 o Mid Superior Mesenteric: Peak Systolic Velocity - 92: Doppler Waveform: Triphasic.: EDV- 12 o Distal Superior Mesenteric: Peak Systolic Velocity - 85: Doppler Waveform: Triphasic.: EDV- 0 o Proximal Inferior Mesenteric: Peak Systolic Velocity - 154: Doppler Waveform: Triphasic.: EDV- 0 OTHER FINDINGS: None. IMPRESSION: There is greater than 70% stenosis of the celiac artery. There is no change in the celiac artery velocities with valsalva.
--- NOTE | 2017-05-14 10:34 | CP.PCM.PN ---
Subjective - Date & Time of Evaluation Date of Evaluation: 05/14/17 Time of Evaluation: 10:31 - Subjective Subjective: Surgery: Dr. Mayo Pt seen and examined. Resting comfortably in bed. Currently no pain. Did have pain last night following dinner. Objective - Vital Signs/Intake and Output Vital Signs (last 24 hours): Temp Pulse Resp BP Pulse Ox 98.7 F 77 20 127/79 97 05/13/17 23:00 05/13/17 23:00 05/13/17 23:00 05/13/17 23:00 05/13/17 23:00 Intake and Output: 05/14/17 05/14/17 06:59 18:59 Intake Total 800 Balance 800 - Medications Medications: Current Medications Heparin Sodium (Porcine) (Heparin) 5,000 units SC Q12 [facility] Last Admin: 05/14/17 09:17 Dose: 5,000 units Sodium Chloride (Sodium Chloride 0.45%) 1,000 mls @ 50 mls/hr IV .Q20H [facility] Last Admin: 05/14/17 06:57 Dose: Not Given Losartan Potassium (Cozaar) 50 mg PO DAILY [facility] Last Admin: 05/14/17 09:16 Dose: 50 mg Ondansetron HCl (Zofran Inj) 4 mg IVP Q6 PRN PRN Reason: Nausea/Vomiting Last Admin: 05/12/17 09:22 Dose: 4 mg Venlafaxine HCl (Effexor Xr) 75 mg PO HS [facility] Last Admin: 05/13/17 21:22 Dose: 75 mg - Constitutional Appears: Non-toxic, No Acute Distress - Head Exam Head Exam: ATRAUMATIC, NORMOCEPHALIC - Eye Exam Eye Exam: EOMI - ENT Exam ENT Exam: Normal Exam - Neck Exam Neck Exam: Full ROM - Respiratory Exam Respiratory Exam: NORMAL BREATHING PATTERN. absent: Accessory Muscle Use, Respiratory Distress - GI/Abdominal Exam GI & Abdominal Exam: Soft. absent: Distended, Firm, Guarding, Rigid, Tenderness , Rebound - Neurological Exam Neurological Exam: Alert, Awake, Oriented x3 Assessment and Plan - Assessment and Plan (Free Text) Assessment: 62F w. abd pain -CTA shows stenosis of celiac artery -Duplex shows increased PSV, however in expiratory phase, PSV do not reach levels suggestive of arcuate ligament syndrome -no plans for surgical intervention -pt can seek second opinion if she desires -d/w attending [facility] PGY2
== END 2017-05-14 16:20 | disposition home or self-care (01) | DRG 392 ==
LOC: C.ER 11:15 → C.9E 15:28 → C.ER 16:17 → C.6T 16:42 → OBSVTOIN 05-13 15:19
PROVIDERS: ADMIT Internal Medicine; ATTEND Internal Medicine
PROC: 0DB68ZX Excision of Stomach, Via Natural or Artificial Opening Endoscopic, Diagnostic (ICD-10-PCS; principal; 2017-05-13 13:13)
DX: I77.4 Celiac artery compression syndrome (principal); I10 Essential (primary) hypertension; R55 Syncope and collapse; E87.6 Hypokalemia; K29.50 Unspecified chronic gastritis without bleeding; E78.00 Pure hypercholesterolemia, unspecified; Z90.710 Acquired absence of both cervix and uterus; Z90.49 Acquired absence of other specified parts of digestive tract